=== PATIENT | female | born 1955 | race Caucasian/White ===

== ENCOUNTER → 2020-05-31 12:05 | Outpatient (CLI) | payer MEDICARE, SELFPAY ==
[2020-05-31 14:22] LABS: Coronavirus 19 IgG Antibody Negative (Negative); Coronavirus 19 IgM Antibody Negative (Negative)
== END ==
PROVIDERS: Visit Provider Internal Medicine Gastroenterology
DX: Z03.818 Encounter for observation for suspected exposure to other biological agents ruled out (principal)
CPT/HCPCS: 36415; 86328

== ENCOUNTER 2020-06-02 12:02 | Day surgery (SDC) | payer MEDICARE, MEDICAID, SELFPAY ==
[2020-05-28 11:42] VITALS: BMI 61.5
[2020-06-02] VITALS (7 sets, daily range): BP systolic 114–145; BP diastolic 65–75; PULSE 51–66; RESP 16–18; TEMP 36.6–36.7; O2SAT 95–97
--- NOTE | 2020-06-02 13:36 | HMH.ANESCL ---
[facility] Anesthesia Checklist - Patient Identification Patient Identification: Arm Band, Verbal (Name & ) - Structural Data Admitted From: Home Planned Operative Procedure/s: Colonoscopy Consent for Planned Operative Procedure(s) Verified: Yes Verified Documents: Surgical Consent, History and Physical - NPO Status Verified Time NPO: 00:00 - Chart Verification Results Verified: None - Additional verifications Anesthesia Reactions: No - Airway Assessment C-Spine Mobility Assessed: Yes TMJ Mobility Assessed: Yes Dentition: Good Dentition (Missing teeth) - Neurological Assessment Level of Consciousness: Awake, Alert, Appropriate, Follows Commands Hx Seizures: No Numbness or tingling in extremities: No - Anesthesia Plan Anesthesia Risk discussed: Yes Anesthesia Plan: Verified ASA Class: III Anesthesia Type: MAC [facility] History I have reviewed the patient's past medical history: Yes Medical History: Reports:: Arrhythmia, Asthma, Gastroesophageal Reflux Disease(GERD), Hypertension Denies:: Cancer, Diabetes Mellitus Type 1, Diabetes Mellitus Type 2, Internal Pacemaker, MRSA, Seizures *Have you ever received a pneumonia vaccine?: No *Have you received a flu vaccine this season?: No Comment:: morbid obesity, FLORENCIO Anesthesia experience/problems:: None Laterality Cases: Left: ACL Repair Other Surgeries: Yes: Hysterectomy-Partial, Other (Right breast bx, left RCR, Lumbar fusion). No: Pacemaker Amputation: No Fractures: No - *Social History Last grade of school completed: Advanced degree Smoking Status: Never smoker Alcohol Intake: never Substance Use Type: denies use *Occupational Status:: retired, disabled Housing: house *Travel in the last 8 weeks: None Family Hx:: Cancer, Diabetes
--- NOTE | 2020-06-02 13:49 | HMH.PROC ---
[facility] Procedure Note Procedure Note:: Colonoscopy Procedure Report: Colonoscopy with cold snare polypectomy Endoscopist: Jason Quiñones II, MD Referring physician: Wesley Vazquez MD Date of Procedure: June 02, 2020 Equipment: Olympus 180 variable stiffness pediatric colonoscope Sedation: MAC sedation Indication: Mrs. Britton is a 65-year-old female with left upper quadrant abdominal pain intermittently. She does have some chronic constipation and does state that her pain often improves with adding MiraLAX but her pain has not improved with this measure more recently. She also takes Metamucil capsules (5 capsules daily). She has had some intermittent rectal bleeding once a month. She reports no weight loss or family history of colon cancer. Her recent lab work was normal showing hemoglobin 12.8 and hematocrit 40.8. The patient's last colonoscopy was 7 to 8 years ago. Procedure: Prior to the procedure, a history and physical exam was performed, and patient's medications and allergies were reviewed. The risks, benefits and alternatives of the sedation and procedure were discussed with the patient. All questions were answered and informed consent was obtained. The patient was brought to the procedure room. Patient identification and proposed procedure were verified by the physician and the nurse. The patient was placed in a left lateral decubitus position and the scope was passed under direct vision. Throughout the procedure, the patient's blood pressure, pulse, and oxygen saturations were monitored continuously. The colonoscopy was accomplished without difficulty. The patient tolerated the procedure well. Findings: On digital rectal examination there was normal rectal tone. There were no external hemorrhoids. The colonoscope was introduced through the anal canal to the rectum and advanced to the cecum. The ileocecal valve and appendiceal orifice were identified. The scope was advanced a short distance into the ileum which appeared grossly normal. The scope was then withdrawn into the colon. The cecum, ascending and transverse colon and mucosa were grossly normal. There was a 4 mm polyp in the descending colon removed via cold snare polypectomy. There was some angulation at the splenic flexure suggestive of splenic flexure syndrome. There were scattered diverticuli throughout the descending and sigmoid colon (LEFT colon). The rectum itself was normal. Upon retroflexion within the rectum there were grade 1-2 internal hemorrhoids. The preparation was excellent throughout with Armstrong Preparation Score of 9. The cecal time was 12 minutes. Impression: 1. Diminutive descending colon polyp 2. Left-sided diverticulosis 3. 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 Grade 1-2 internal hemorrhoids Plan: I will discussed dietary measures. I would like for her to continue the fiber bowel regimen with MiraLAX plus powder Konsyl (1 tablespoon). Konsyl has 15 g of soluble fiber per tablespoon whereas the Metamucil capsules have 0.5 g/caps. (patient only getting 2.5 g of soluble fiber daily). I would consider treatment for visceral sensitivity. I will follow-up the polyp histology and recommend repeat screening/surveillance colonoscopy again in 7 to 10 years based upon the pathology.
== END 2020-06-02 14:39 | disposition home or self-care (01) ==
LOC: OUTP 12:07
PROVIDERS: PCP Family Medicine; Visit Provider Internal Medicine Gastroenterology
PROC: 0DJD8ZZ Inspection of Lower Intestinal Tract, Via Natural or Artificial Opening Endoscopic (ICD-10-PCS; CPT 45378; principal; 2020-06-02 13:00)
DX: K63.5 Polyp of colon (principal); K57.30 Diverticulosis of large intestine without perforation or abscess without bleeding; K64.0 First degree hemorrhoids; J45.909 Unspecified asthma, uncomplicated; K21.9 Gastro-esophageal reflux disease without esophagitis; I10 Essential (primary) hypertension; I49.9 Cardiac arrhythmia, unspecified; Z90.711 Acquired absence of uterus with remaining cervical stump; Z87.39 Personal history of other diseases of the musculoskeletal system and connective tissue; Z83.3 Family history of diabetes mellitus; Z80.9 Family history of malignant neoplasm, unspecified; Z79.899 Other long term (current) drug therapy
CPT/HCPCS: 45385; 88305

== ENCOUNTER 2020-11-24 14:05 | Emergency (ER) | payer OTHER, SELFPAY ==
[2020-11-24] VITALS (11 sets, daily range): BP systolic 142–169; BP diastolic 89–117; PULSE 61–82; RESP 17–18; TEMP 36.7–36.8; O2SAT 93–98; BMI 42.5
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
== END 2020-11-24 17:16 | disposition home or self-care (01) ==
PROVIDERS: Emergency Provider Family Medicine; PCP Family Medicine
DX: R07.89 Other chest pain (principal); V43.62XA Car passenger injured in collision with other type car in traffic accident, initial encounter; Y92.488 Other paved roadways as the place of occurrence of the external cause
CPT/HCPCS: 71046; 99282

== ENCOUNTER → 2021-01-30 17:03 | Outpatient (CLI) | payer MEDICARE, MEDICAID, SELFPAY | PROVIDERS: Visit Provider Internal Medicine Gastroenterology | DX: Z01.812 Encounter for preprocedural laboratory examination (principal); Z20.822 Contact with and (suspected) exposure to COVID-19; Z13.810 Encounter for screening for upper gastrointestinal disorder; R10.13 Epigastric pain | CPT/HCPCS: U0003 ==

== ENCOUNTER 2021-02-02 11:16 | Day surgery (SDC) | payer MEDICARE, MEDICAID, SELFPAY ==
[2021-01-27 10:56] VITALS: BMI 43.3
[2021-02-02 12:23] VITALS: BP 133/62; PULSE 71; RESP 18; TEMP 36.7; O2SAT 95
--- NOTE | 2021-02-02 12:23 | HMH.ANESCL ---
[facility] Anesthesia Checklist - Patient Identification Patient Identification: Arm Band - Structural Data Admitted From: Home Planned Operative Procedure/s: EGD Consent for Planned Operative Procedure(s) Verified: Yes - NPO Status Verified Time NPO: 00:00 - Additional verifications Anesthesia Reactions: No - Airway Assessment C-Spine Mobility Assessed: Yes TMJ Mobility Assessed: Yes Dentition: Good Dentition - Neurological Assessment Level of Consciousness: Awake Hx Seizures: No Numbness or tingling in extremities: No - Anesthesia Plan Anesthesia Risk discussed: Yes Anesthesia Plan: Verified ASA Class: III Anesthesia Type: MAC [facility] History I have reviewed the patient's past medical history: Yes Medical History: Reports:: Arrhythmia, Asthma, Gastroesophageal Reflux Disease(GERD), Hypertension Denies:: Cancer, Diabetes Mellitus Type 1, Diabetes Mellitus Type 2, Internal Pacemaker, MRSA, Seizures *Have you ever received a pneumonia vaccine?: No *Have you received a flu vaccine this season?: No Anesthesia experience/problems:: None Laterality Cases: Left: ACL Repair Other Surgeries: Yes: Hysterectomy-Partial, Other (Right breast bx, left RCR, Lumbar fusion). No: Pacemaker Amputation: No Fractures: No - *Social History Last grade of school completed: High school graduate Smoking Status: Never smoker Alcohol Intake: never Substance Use Type: denies use *Occupational Status:: disabled Housing: house Household Members: none *Travel in the last 8 weeks: None Family Hx:: Cancer, Diabetes
--- NOTE | 2021-02-02 13:18 | P.PCN_ITS ---
[facility] Procedure Note Procedure Note:: Upper Endoscopy Procedure Report: Esophagogastroduodenoscopy with cold biopsies and TTS balloon dilation Endoscopost: Jason Quiñones II, MD Referring Physician: Wesley Vazquez MD Date of Procedure: February 02, 2021 Equipment: Olympus GIF 190 standard upper endoscope Sedation: MAC sedation Indications: Mrs. Britton is a 65-year-old female with chronic dyspepsia and reflux. She reports ongoing heartburn and reflux. Pepcid (famotidine) takes away some of the burning discomfort. She has had moderate bloating, epigastric abdominal discomfort, belching and globus sensation. She does report some nausea, regurgitation and vomiting. This is her first upper endoscopy. She does have a history of IBS with constipation. She has had several colonoscopies and her last colonoscopy with me was in May 2020 at which time she had a single polyp (tubular adenoma) removed. Procedure: Prior to the procedure, a history and physical exam was performed, and patient's medications and allergies were reviewed. The risks, benefits and alternatives of the sedation and procedure were discussed with the patient. All questions were answered and informed consent was obtained. The patient was brought to the procedure room. Patient identification and proposed procedure were verified by the physician and the nurse. The patient was placed in a left lateral decubitus position and the scope was passed under direct vision. Throughout the procedure, the patient's blood pressure, pulse, and oxygen saturations were monitored continuously. The upper GI endoscopy was accomplished without difficulty. The patient tolerated the procedure well. Findings: The scope was passed directly into the upper esophagus and advanced to the third portion of the duodenum. The post bulbar duodenum and duodenal bulb were normal with normal mucosa and conniventes. The scope was withdrawn through a normal duodenal bulb and pylorus into the stomach. There was evidence of bile reflux with linear reactive gastropathy of the antrum. The remainder of the body and fundus of the stomach were grossly normal. Upon retroflexion there was a small sliding 1 to 2 cm hiatal hernia. 2 biopsies were taken in the antrum and along the lesser curvature for histology to rule out gastritis and/or H pylori. The scope was then withdrawn into the esophagus. There was a serrated Z-line. Cold biopsies were taken at the GE junction. There were tertiary contractions and evidence of moderate esophageal dysmotility. There was no evidence of reflux esophagitis, Ramos's or Schatzki's ring. The entire esophagus was dilated to 60 [place]/20 mm with a TTS hydrostatic balloon. There was some resistance at the cricopharyngeus. The remainder of the esophageal mucosa was normal. Impression: 1. Cricopharyngeal spasm status post dilation to 20 mm 2. Nonerosive GERD with mild esophageal dysmotility and small 1 to 2 cm sliding hiatal hernia 3. Bile reflux with mild linear reactive gastropathy Plan: I will follow-up the biopsies. The patient does have functional dyspepsia and functional GERD. I would encourage the patient to maintain on the dietary measures and fiber bowel regimen (combined MiraLAX plus Metamucil taken every morning). I would consider adding a promotility agent (Reglan, Zelnorm or domperidone). We will discuss treatment options.
[2021-02-02 13:20] VITALS: BP 141/83; PULSE 83; RESP 16; TEMP 36.2; O2SAT 92
[2021-02-02 13:30] VITALS: BP 128/74; PULSE 68; RESP 16; TEMP 36.2; O2SAT 95
[2021-02-02 13:38] VITALS: O2SAT 97
[2021-02-02 13:40] VITALS: BP 122/81; PULSE 67; RESP 18; TEMP 36.2; O2SAT 95
[2021-02-02 13:50] VITALS: BP 130/76; PULSE 73; RESP 18; TEMP 36.2; O2SAT 95
== END 2021-02-02 13:55 | disposition home or self-care (01) ==
LOC: OUTP 11:18
PROVIDERS: PCP Family Medicine; Visit Provider Internal Medicine Gastroenterology
PROC: 0DJ08ZZ Inspection of Upper Intestinal Tract, Via Natural or Artificial Opening Endoscopic (ICD-10-PCS; CPT 43235; principal; 2021-02-02 12:30)
DX: K30 Functional dyspepsia (principal); K21.9 Gastro-esophageal reflux disease without esophagitis; J39.2 Other diseases of pharynx; K22.4 Dyskinesia of esophagus; K44.9 Diaphragmatic hernia without obstruction or gangrene; K31.9 Disease of stomach and duodenum, unspecified; I49.9 Cardiac arrhythmia, unspecified; J45.909 Unspecified asthma, uncomplicated; I10 Essential (primary) hypertension; Z80.9 Family history of malignant neoplasm, unspecified; Z83.3 Family history of diabetes mellitus; Z79.899 Other long term (current) drug therapy
CPT/HCPCS: 43239; 43249; 88305; C1726